=== PATIENT | male | born 1975 | race Caucasian/White ===

== ENCOUNTER 2017-10-03 16:53 | Emergency (ER) | payer OTHER ==
[~2017-10-03] VITALS: Ht 170.2 cm; Wt 106.1 kg
[~2017-10-03 16:53] MED LIST: RITALIN20 MG PO; SERTRALINE HCL100 MG PO
[2017-10-03] MEDS ORDERED: PREDNISONE 20 MG TAB PO ONE (17:15)
[2017-10-03] MEDS ORDERED: DIAZEPAM 5 MG TAB PO PRN (17:15)
[2017-10-03] MEDS ORDERED: KETOROLAC TROMETHAMINE 60 MG/2 ML VIAL IM ONE (17:15)
--- NOTE | 2017-10-03 17:54 | Diagnostic Imaging Report ---
History: Bilateral arm tingling and numbness Comparison studies: None Technique: Axial images were obtained from the skull base to the vertex. Coronal and sagittal reconstructions obtained from the axial data. Findings: Scalp/skull: No abnormalities. No fractures, blastic or lytic lesions. Extra-axial spaces: No masses. No fluid collections. Brain sulci: Appropriate for age. Ventricles: Normal in size and configuration. No hydrocephalus. Parenchyma: No abnormal densities. No masses, hemorrhage, acute or chronic cortical vascular insults. Sellar/suprasellar region: No abnormalities Craniocervical junction: Patent foramen magnum. No Chiari one malformation. IMPRESSION: No abnormalities. Signed by: Dr. Nba Zamorano M.D. on 10/03/2017 5:51 PM
--- NOTE | 2017-10-03 17:59 | Diagnostic Imaging Report ---
History: Numbness and tingling Comparison studies: None Technique: Axial images were obtained through the cervical region.. Coronal and sagittal images reconstructed from the axial data.. Intravenous contrast: None Findings: Fractures: None. Soft tissues: No gross abnormalities. Atlantoaxial articulation: Intact. Alignment: Straightening of the usual lordosis is probably positional. No scoliosis. Cervicomedullary junction: No abnormalities. The foramen magnum is patent. Vertebrae: No infection or neoplasm. Degenerative changes: C2-C3: No abnormalities. C3-C4: Mild left foraminal stenosis due to facet and uncovertebral arthrosis. Patent right foramen and spinal canal. C4-5: Moderate right foraminal stenosis due to uncoarthrosis. Patent spinal canal and left foramen. C5-6: Mildly degenerated disc Moderate right foraminal stenosis due to facet and uncovertebral arthrosis. Mild right spinal canal stenosis due to a superimposed disc osteophyte complex. Patent left foramen. C6-C7: Patent spinal canal and foramina. IMPRESSION: 1. Mildly degenerated disc at C5-6 2. Degenerative foraminal stenosis from C3 to C6 is worse on the right at C4-5 and C5-6. 3. No significant spinal canal stenosis 4. No additional abnormalities. Signed by: Dr. Nba Zamorano M.D. on 10/03/2017 5:56 PM
[2017-10-03] MEDS ORDERED: PREDNISONE20 MG PO (18:43)
[2017-10-03] MEDS ORDERED: ULTRAM50 MG PO (18:44)
[2017-10-03] MEDS ORDERED: NAPROXEN250 MG PO (18:44)
[2017-10-04 04:18] VITALS: BP 138/80
== END 2017-10-03 20:47 | disposition home or self-care (01) ==
LOC: ER 16:53
DX: M54.2 Cervicalgia (principal); S16.1XXA Strain of muscle, fascia and tendon at neck level, initial encounter; M54.12 Radiculopathy, cervical region
CPT/HCPCS: 70450; 72125; 96372; 99283; J1885

== ENCOUNTER 2021-02-13 14:11 | Emergency (ER) | payer OTHER ==
[~2021-02-13] VITALS: Ht 170.2 cm; Wt 116.1 kg
[~2021-02-13 14:11] MED LIST changes: +NAPROXEN250 MG PO; +PREDNISONE20 MG PO; +ULTRAM50 MG PO
[2021-02-13] MEDS ORDERED: PREDNISONE50 MG PO (15:45)
[2021-02-13] MEDS ORDERED: NAPROSYN500 MG PO (15:45)
== END 2021-02-13 16:20 | disposition home or self-care (01) ==
LOC: ER 16:16
DX: M70.72 Other bursitis of hip, left hip (principal)
CPT/HCPCS: 99282

== ENCOUNTER 2021-02-28 22:53 | Emergency (ER) | payer OTHER ==
[~2021-02-28] VITALS: Ht 170.2 cm; Wt 116.1 kg
[~2021-02-28 22:53] MED LIST changes: +NAPROSYN500 MG PO; +PREDNISONE50 MG PO
[2021-03-01] MEDS ORDERED: VENTOLIN HFA18 GM INH ×2 (00:49→01:19)
[2021-03-01] MEDS ORDERED: PREDNISONE20 MG PO ×2 (00:49→01:19)
[2021-03-01] MEDS ORDERED: AZITHROMYCIN250 MG PO ×2 (00:49→01:19)
== END 2021-03-01 01:26 | disposition home or self-care (01) ==
LOC: ER 22:59
DX: U07.1 COVID-19 (principal); J06.9 Acute upper respiratory infection, unspecified; E03.9 Hypothyroidism, unspecified; Z79.1 Long term (current) use of non-steroidal anti-inflammatories (NSAID); Z79.52 Long term (current) use of systemic steroids
CPT/HCPCS: 71045; 93005; 99283

== ENCOUNTER 2024-08-16 12:15 | Emergency (ER) | payer OTHER ==
[~2024-08-16] VITALS: Ht 170.2 cm; Wt 117.9 kg
[~2024-08-16 12:15] MED LIST changes: +AZITHROMYCIN250 MG PO; +VENTOLIN HFA18 GM INH
[2024-08-16 12:26] VITALS: PULSE 71; RESP 16; TEMP 98.6
[2024-08-16 12:45] LABS: BASOPHILS % 0.5 % (0.0-1.0); EOSINOPHILS # (AUTO) 0.2 (0.0-0.4); EOSINOPHILS % 3.6 % (0.0-6.0); HEMATOCRIT 45.9 % (38.2-49.6); HEMOGLOBIN 15.3 g/dL (14.0-18.0); LYMPHOCYTES # (AUTO) 1.6 (1.0-3.2); LYMPHOCYTES % 24.1 % (18.0-39.1); MEAN CORPUSCULAR HEMOGLOBIN 29.8 pg (28-32); MEAN CORPUSCULAR HGB CONC 33.3 g/dL (31-35); MEAN CORPUSCULAR VOLUME 89.5 fL (81-99); MONOCYTES # (AUTO) 0.7 (0.2-0.8); MONOCYTES % 10.4 % (4.4-11.3); NEUTROPHILS % 60.9 % (38.7-80.0); PLATELET COUNT 308 x10e3/uL (140-360); RED BLOOD COUNT 5.13 x10e6/uL (4.3-5.7); RED CELL DISTRIBUTION WIDTH 12.8 % (11.7-14.4); WHITE BLOOD COUNT 6.63 x10e3/uL (4.8-10.8)
[2024-08-16] MEDS: SODIUM CHLORIDE 0.9% 1000ML 1,000 ML IV STA (12:47)
[2024-08-16] MEDS: ONDANSETRON HCL INJ 2MG/ML 2ML 2 MG/ML VIAL IV STA (12:47)
[2024-08-16 12:55] LABS: INR 0.89; PROTHROMBIN TIME 12.9 seconds (11.9-14.5)
[2024-08-16 12:56] LABS: PARTIAL THROMBOPLASTIN TIME 27.1 seconds (23.8-35.5)
[2024-08-16 13:06] LABS: ALBUMIN 4.2 g/dL (3.5-5.0); ALBUMIN/GLOBULIN RATIO 1.2 (0.8-2.0); ANION GAP 13.2 mmol/L (8-16); BILIRUBIN,TOTAL 0.7 mg/dL (0.2-1.2); CALCIUM 9.7 mg/dL (8.4-10.2); CREATININE, SERUM 1.06 mg/dL (0.72-1.25); POTASSIUM 4.2 mmol/L (3.5-5.1); TOTAL PROTEIN 7.8 g/dL (6.5-8.1); TROPONIN I 0.004 ng/mL (0-0.300)
[2024-08-16] MEDS ORDERED: LIDOCAINE VISC 2% SOLN 15 ML UDC ONE (13:17)
[2024-08-16] MEDS ORDERED: BELLADONNA ALK/PHENOBARBITAL 5 ML UDC ONE (13:18)
[2024-08-16] MEDS ORDERED: MAGNESIUM/ALUMINUM/SIMETHICONE 30 ML UDC ONE (13:18)
[2024-08-16] MEDS: DONNATAL/LIDOCAINE/MAALOX 30 ML SUSP PO ONE (13:23)
[2024-08-16] MEDS ORDERED: ONDANSETRON ODT4 MG PO (14:07)
[2024-08-16] MEDS ORDERED: CARAFATE1 GM PO (14:07)
[2024-08-16 14:21] VITALS: BP 116/67; PULSE 72; RESP 16; TEMP 98.4; O2SAT 100
== END 2024-08-16 14:24 | disposition home or self-care (01) ==
LOC: ER 12:20
DX: R10.12 Left upper quadrant pain (principal); K21.00 Gastro-esophageal reflux disease with esophagitis, without bleeding; R11.0 Nausea; E78.5 Hyperlipidemia, unspecified; E03.9 Hypothyroidism, unspecified; G47.30 Sleep apnea, unspecified; R94.31 Abnormal electrocardiogram [ECG] [EKG]
CPT/HCPCS: 36415; 80053; 82550; 83690; 84484; 85025; 85610; 85730; 93005; 99284; J2405; J2470; J7030

== ENCOUNTER 2024-08-23 20:24 | Emergency (ER) | payer OTHER ==
[~2024-08-23] VITALS: Ht 170.2 cm; Wt 117.9 kg
[2024-08-23 20:24] VITALS: TEMP 97.7
[~2024-08-23 20:24] MED LIST changes: +CARAFATE1 GM PO; +ONDANSETRON ODT4 MG PO
[2024-08-23 20:38] LABS: BASOPHILS % 0.4 % (0.0-1.0); EOSINOPHILS # (AUTO) 0.2 (0.0-0.4); EOSINOPHILS % 2.1 % (0.0-6.0); HEMATOCRIT 45.4 % (38.2-49.6); HEMOGLOBIN 15.1 g/dL (14.0-18.0); LYMPHOCYTES # (AUTO) 1.3 (1.0-3.2); LYMPHOCYTES % 16.1 % (18.0-39.1); MEAN CORPUSCULAR HEMOGLOBIN 29.8 pg (28-32); MEAN CORPUSCULAR HGB CONC 33.3 g/dL (31-35); MEAN CORPUSCULAR VOLUME 89.5 fL (81-99); MONOCYTES # (AUTO) 0.7 (0.2-0.8); MONOCYTES % 8.2 % (4.4-11.3); NEUTROPHILS # (AUTO) 5.9 (2.1-6.9); NEUTROPHILS % 72.8 % (38.7-80.0); PLATELET COUNT 308 x10e3/uL (140-360); RED BLOOD COUNT 5.07 x10e6/uL (4.3-5.7); RED CELL DISTRIBUTION WIDTH 12.6 % (11.7-14.4); WHITE BLOOD COUNT 8.13 x10e3/uL (4.8-10.8)
[2024-08-23 20:51] LABS: INR 0.89; PROTHROMBIN TIME 12.9 seconds (11.9-14.5)
[2024-08-23 20:52] LABS: PARTIAL THROMBOPLASTIN TIME 26.2 seconds (23.8-35.5)
[2024-08-23 21:01] LABS: ANION GAP 14.2 mmol/L (8-16); BILIRUBIN,TOTAL 1.2 mg/dL (0.2-1.2); CALCIUM 10.3 mg/dL (8.4-10.2); CREATININE, SERUM 1.17 mg/dL (0.72-1.25); POTASSIUM 4.2 mmol/L (3.5-5.1); TOTAL PROTEIN 7.9 g/dL (6.5-8.1)
[2024-08-23 21:30] VITALS: PULSE 92; RESP 21
[2024-08-23 21:40] VITALS: BP 107/70; O2SAT 100
== END 2024-08-23 21:41 | disposition home or self-care (01) ==
LOC: ER 20:27
DX: R00.2 Palpitations (principal); T38.0X5A Adverse effect of glucocorticoids and synthetic analogues, initial encounter; I10 Essential (primary) hypertension; E78.5 Hyperlipidemia, unspecified; I25.10 Atherosclerotic heart disease of native coronary artery without angina pectoris; G47.30 Sleep apnea, unspecified; K21.9 Gastro-esophageal reflux disease without esophagitis; R94.31 Abnormal electrocardiogram [ECG] [EKG]; I25.2 Old myocardial infarction; Z95.5 Presence of coronary angioplasty implant and graft; Z87.19 Personal history of other diseases of the digestive system
CPT/HCPCS: 36415; 71045; 80053; 83880; 84484; 85025; 85610; 85730; 93005; 99284

== ENCOUNTER 2024-09-01 04:54 | Emergency (ER) | payer OTHER ==
[~2024-09-01] VITALS: Ht 170.2 cm; Wt 117.9 kg
[2024-09-01 04:54] VITALS: TEMP 98.1
[2024-09-01 05:27] LABS: BASOPHILS % 0.5 % (0.0-1.0); EOSINOPHILS % 3.7 % (0.0-6.0); LYMPHOCYTES % 22.4 % (18.0-39.1); MONOCYTES % 10.0 % (4.4-11.3); NEUTROPHILS % 63.0 % (38.7-80.0); RED CELL DISTRIBUTION WIDTH 12.6 % (11.7-14.4)
[2024-09-01 05:53] VITALS: PULSE 66; RESP 23
[2024-09-01 05:53] LABS: EST GLOMERULAR FILTRATION RATE 77.0 ML/MIN (>=60)
[2024-09-01 05:58] VITALS: BP 119/71; PULSE 66; RESP 21; TEMP 97.9; O2SAT 96
== END 2024-09-01 06:05 | disposition home or self-care (01) ==
LOC: ER 05:10
DX: R06.00 Dyspnea, unspecified (principal); R00.2 Palpitations; F41.9 Anxiety disorder, unspecified; R07.9 Chest pain, unspecified; I10 Essential (primary) hypertension; R06.02 Shortness of breath; I25.2 Old myocardial infarction; I25.10 Atherosclerotic heart disease of native coronary artery without angina pectoris; K21.9 Gastro-esophageal reflux disease without esophagitis; E78.5 Hyperlipidemia, unspecified; F17.210 Nicotine dependence, cigarettes, uncomplicated; Z95.5 Presence of coronary angioplasty implant and graft; Z90.49 Acquired absence of other specified parts of digestive tract
CPT/HCPCS: 36415; 71045; 80053; 84484; 85025; 93005; 99284